=== PATIENT | male | born 1995 | race Hispanic/Latino ===

== ENCOUNTER 2018-03-31 18:35 | Emergency (ER) | payer SELFPAY ==
--- OUTSIDE RECORDS SUMMARY | 2018-03-31 18:36 | XMS REPORT | Clinical Summary ---
:1995 Author Organization [facility] Address [address] [place] [address] Care Team Providers Name Role Phone Asked, No Pcp Primary Care Provider Unavailable Allergies Active Allergy Reactions Severity Noted Date Comments Aspirin Swelling High 07/23/2016 Current Medications Not on file Active Problems Not on file Social History Tobacco Use Types Packs/Day Years Used Date Never Assessed Sex Assigned at Date Recorded Not on file Last Filed Vital Signs Not on file Plan of Treatment Health Maintenance Due Date Last Done Comments INFLUENZA VACCINE 01/15/2018 Results Not on fileafter 03/30/2017 Insurance Payer Benefit Plan / Group Subscriber ID Type Phone Address [facility] xxxxxxxxx HMO PLAN JJ
--- NOTE | 2018-03-31 19:07 | ER ---
Nurse's Notes [facility] Name: Deven Escalona Age: 22 yrs Sex: Male : 1995 Arrival Date: 03/31/2018 Time: 18:37 Bed 30 Private MD: Diagnosis: Acute bronchitis Presentation: 03/31 18:38 Presenting complaint: Friend states: cough x 1 month. Transition of care: patient was sv not received from another setting of care. Onset of symptoms was February 2018. Care prior to arrival: None. 18:38 Method Of Arrival: Ambulatory sv 18:38 Acuity: CORDELL 4 sv 18:58 Risk Assessment: Do you want to hurt yourself or someone else? Patient reports no kr2 desire to harm self or others. Initial Sepsis Screen: Does the patient meet any 2 criteria? No. Patient's initial sepsis screen is negative. Does the patient have a suspected source of infection? No. Patient's initial sepsis screen is negative. Triage Assessment: 18:38 General: Appears in no apparent distress. Behavior is calm, cooperative, appropriate sv for age. Neuro: Level of Consciousness is awake, alert, obeys commands, Oriented to person, place, time, situation, Moves all extremities. Full function Gait is steady. Respiratory: Reports cough that is persistent Respiratory effort is even, unlabored, Respiratory pattern is regular, symmetrical. Historical: - Allergies: 18:40 Aspirin; sv 18:40 Ibuprofen; sv - Home Meds: 19:05 Clonazepam take daily gets from [place] doesnt have rx Oral [Active]; gs - PMHx: 18:40 Anxiety; Depression; sv - Immunization history:: Flu vaccine is not up to date. - Social history:: Smoking status: Patient uses tobacco products, smokes one-half pack cigarettes per day. - Ebola Screening: : No symptoms or risks identified at this time. Screenin:57 Abuse screen: Denies threats or abuse. Denies injuries from another. Nutritional kr2 screening: No deficits noted. Tuberculosis screening: No symptoms or risk factors identified. Fall Risk None identified. Assessment: 18:55 General: Appears in no apparent distress. comfortable, well groomed, well developed, kr2 well nourished, Behavior is calm, cooperative, appropriate for age. Pain: Complains of pain in chest Pain does not radiate. Pain currently is 8 out of 10 on a pain scale. Quality of pain is described as sharp, stabbing, tender, Is intermittent, Alleviated by rest, Aggravated by Cough, deep breathing. Neuro: Level of Consciousness is awake, alert, obeys commands, Oriented to person, place, time, situation, Appropriate for age. Cardiovascular: Capillary refill < 3 seconds in bilateral fingers Patient's skin is warm and dry. Rhythm is sinus rhythm. Respiratory: Reports cough that is productive, persistent since 1 month ago, worsened since Saturday pain with cough since Saturday Airway is patent Respiratory effort is even, unlabored, Respiratory pattern is regular, symmetrical, Breath sounds are clear bilaterally. GI: Abdomen is flat, non-distended, Bowel sounds present X 4 quads. Abd is soft and non tender X 4 quads. EENT: Nares are clear bilaterally Oral mucosa is moist. Throat is pink Reports nasal congestion. Derm: Skin is intact, is healthy with good turgor, Skin is pink, warm \T\ dry. Musculoskeletal: Circulation, motion, and sensation intact. Vital Signs: 18:40 BP 145 / 80; Pulse 104; Resp 20; Temp 98.6; Pulse Ox 98% ; Height 5 ft. 7 in. (170.18 sv cm); ED Course: 18:37 Patient arrived in ED. as 18:39 Triage completed. sv 18:40 Arm band placed on. sv 18:41 Yolande Weiner, SERA is Primary Nurse. kr2 18:50 Baldo Sharma MD is Attending Physician. gs 18:58 Patient has correct armband on for positive identification. Bed in low position. Call kr2 light in reach. Side rails up X 1. Pulse ox on. NIBP on. cafeteria monitor on. Door closed. Warm blanket given. Head of bed elevated. 19:07 yMles Brennan DO is Referral Physician. gs 19:15 No provider procedures requiring assistance completed. Patient did not have IV access kr2 during this emergency room visit. Administered Medications: No medications were administered Outcome: 19:07 Discharge ordered by . gs 19:15 Discharged to home ambulatory, with family. kr2 19:15 Condition: good 19:15 Discharge instructions given to patient, family, Instructed on discharge instructions, follow up and referral plans. medication usage, Demonstrated understanding of instructions, follow-up care, medications, Prescriptions given X 2. 19:18 Patient left the ED. kr2 Signatures: Alida Avalos RN RN sv Martinez, Amelia as Baldo Sharma MD MD gs Reaves, Karey, RN RN kr2
--- NOTE | 2018-03-31 19:07 | EDPHYS ---
Physician Documentation [facility] Name: Deven Escalona Age: 22 yrs Sex: Male : 1995 Arrival Date: 03/31/2018 Time: 18:37 Bed 30 Private MD: ED Physician Baldo Sharma HPI: 03/31 19:02 This 22 yrs old Male presents to ER via Ambulatory with complaints of Cough. gs 19:02 The patient or guardian reports cough, that is intermittent. Onset: The gs symptoms/episode began/occurred 4 week(s) ago. Severity of symptoms: At their worst the symptoms were moderate, in the emergency department the symptoms are unchanged. Modifying factors: the symptoms are aggravated by smoke. Associated signs and symptoms: Pertinent negatives: chest pain, fever, sore throat. The patient has experienced similar episodes in the past, a few times. Historical: - Allergies: 18:40 Aspirin; sv 18:40 Ibuprofen; sv - Home Meds: 19:05 Clonazepam take daily gets from [place] doesnt have rx Oral [Active]; gs - PMHx: 18:40 Anxiety; Depression; sv - Immunization history:: Flu vaccine is not up to date. - Social history:: Smoking status: Patient uses tobacco products, smokes one-half pack cigarettes per day. - Ebola Screening: : No symptoms or risks identified at this time. ROS: 19:05 All other systems are negative. gs Exam: 19:05 Head/Face: Normocephalic, atraumatic. Eyes: Pupils equal round and reactive to light, gs extra-ocular motions intact. Lids and lashes normal. Conjunctiva and sclera are non-icteric and not injected. Cornea within normal limits. Periorbital areas with no swelling, redness, or edema. ENT: Nares patent. No nasal discharge, no septal abnormalities noted. Tympanic membranes are normal and external auditory canals are clear. Oropharynx with no redness, swelling, or masses, exudates, or evidence of obstruction, uvula midline. Mucous membranes moist. Neck: Trachea midline, no thyromegaly or masses palpated, and no cervical lymphadenopathy. Supple, full range of motion without nuchal rigidity, or vertebral point tenderness. No Meningismus. Chest/axilla: Normal chest wall appearance and motion. Nontender with no deformity. No lesions are appreciated. Respiratory: Lungs have equal breath sounds bilaterally, clear to auscultation and percussion. No rales, rhonchi or wheezes noted. No increased work of breathing, no retractions or nasal flaring. Abdomen/GI: Soft, non-tender, with normal bowel sounds. No distension or tympany. No guarding or rebound. No evidence of tenderness throughout. Back: No spinal tenderness. No costovertebral tenderness. Full range of motion. Skin: Warm, dry with normal turgor. Normal color with no rashes, no lesions, and no evidence of cellulitis. MS/ Extremity: Pulses equal, no cyanosis. Neurovascular intact. Full, normal range of motion. Neuro: Awake and alert, GCS 15, oriented to person, place, time, and situation. Cranial nerves II-XII grossly intact. Motor strength 5/5 in all extremities. Sensory grossly intact. Cerebellar exam normal. Normal gait. 19:05 Constitutional: The patient appears alert, awake. 19:05 Cardiovascular: Rate: tachycardic, Rhythm: regular. Vital Signs: 18:40 BP 145 / 80; Pulse 104; Resp 20; Temp 98.6; Pulse Ox 98% ; Height 5 ft. 7 in. (170.18 sv cm); MDM: 19:01 Patient medically screened. gs 19:05 Differential Diagnosis: Bronchitis Upper Respiratory Infection Viral Syndrome. Data gs reviewed: vital signs, nurses notes. Counseling: I had a detailed discussion with the patient and/or guardian regarding: the historical points, exam findings, and any diagnostic results supporting the discharge/admit diagnosis, the presence of at least one elevated blood pressure reading (>120/80) during this emergency department visit, the need for outpatient follow up. Special discussion: I have referred the patient to see his PCP for further evaluation of high blood pressure. 19:07 Counseling: I had a detailed discussion with the patient and/or guardian regarding: gs smoking cessation. Administered Medications: No medications were administered Disposition: 03/31/18 19:07 Discharged to Home. Impression: Acute bronchitis. - Condition is Stable. - Discharge Instructions: Acute Bronchitis, Adult. - Prescriptions for Prednisone 20 mg Oral Tablet - take 1 tablet by ORAL route once daily for 5 days; 5 tablet. Albuterol Sulfate 90 mcg/actuation - inhale 1-2 puff by INHALATION route every 4-6 hours; 1 Inhaler. - Medication Reconciliation Form, Thank You Letter, Antibiotic Education, Prescription Opioid Use form. - Follow up: Mika, DO Myles; When: 2 - 3 days; Reason: Re-evaluation by your physician. Signatures: Alida Avalos RN RN Baldo Sharma MD MD Yolande Weiner RN RN kr2 Corrections: (The following items were deleted from the chart) 19:18 19:07 03/31/2018 19:07 Discharged to Home. Impression: Acute bronchitis. Condition is kr2 Stable. Forms are Medication Reconciliation Form, Thank You Letter, Antibiotic Education, Prescription Opioid Use. Follow up: Myles Brennan; When: 2 - 3 days; Reason: Re-evaluation by your physician. gs
== END 2018-03-31 19:18 | disposition home or self-care (01) ==
LOC: ER 18:35
DX: J20.9 Acute bronchitis, unspecified (principal); F17.210 Nicotine dependence, cigarettes, uncomplicated; F41.9 Anxiety disorder, unspecified; F32.9 Major depressive disorder, single episode, unspecified; Z88.6 Allergy status to analgesic agent
CPT/HCPCS: 99284

== ENCOUNTER 2019-06-30 07:07 | Emergency (ER) | payer SELFPAY ==
--- OUTSIDE RECORDS SUMMARY | 2019-06-30 07:08 | XMS REPORT ---
:1995 [facility] Address [address] [place] [address] [place] [address] Care Team Providers Name Role Phone Unavailable Unavailable Unavailable Problems This patient has no known problems. Allergies, Adverse Reactions, Alerts This patient has no known allergies or adverse reactions. Medications This patient has no known medications.
[2019-06-30 08:40] LABS: Urine Blood NEGATIVE (NEG); Urine Glucose NEGATIVE (NEG); Urine Protein NEGATIVE (NEG); Urine Specific Gravity >1.030 (1.005-1.030); Urine pH 5.5 (5.0-7.0)
--- NOTE | 2019-06-30 08:47 | EDPHYS ---
Physician Documentation [facility] Name: Deven Escalona Age: 23 yrs Sex: Male : 1995 Arrival Date: 06/30/2019 Time: 07:09 Bed 14 Private MD: Derrell Bustillos HPI: 06/30 08:38 This 23 yrs old Male presents to ER via Ambulatory with complaints of Back dana Pain. 08:38 The patient presents with pain that is acute. The symptoms are located in the lumbar dana area, left mid back and right mid back. Onset: The symptoms/episode began/occurred 1 day(s) ago. The pain does not radiate. Associated signs and symptoms: The patient has no apparent associated signs or symptoms. Severity of symptoms: At their worst the symptoms were. Historical: - Allergies: 07:19 Ibuprofen; iw 07:19 Aspirin; iw - Home Meds: 07:19 Clonazepam take daily gets from [place] doesnt have rx Oral [Active]; iw - PMHx: 07:19 Anxiety; Depression; iw - PSHx: 07:19 None; iw - Immunization history:: Adult Immunizations not up to date. - Social history:: Smoking status: Patient uses tobacco products, denies chronic smoking, but will smoke occasionally. - Ebola Screening: : Patient negative for fever greater than or equal to 101.5 degrees Fahrenheit, and additional compatible Ebola Virus Disease symptoms Patient denies exposure to infectious person Patient denies travel to an Ebola-affected area in the 21 days before illness onset No symptoms or risks identified at this time. - Family history:: not pertinent. ROS: 08:38 Constitutional: Negative for fever, chills, and weight loss, Eyes: Negative for injury, dana pain, redness, and discharge, ENT: Negative for injury, pain, and discharge, Neck: Negative for injury, pain, and swelling, Cardiovascular: Negative for chest pain, palpitations, and edema, Respiratory: Negative for shortness of breath, cough, wheezing, and pleuritic chest pain, Abdomen/GI: Negative for abdominal pain, nausea, vomiting, diarrhea, and constipation, : Negative for injury, bleeding, discharge, and swelling, MS/Extremity: Negative for injury and deformity, Skin: Negative for injury, rash, and discoloration, Neuro: Negative for headache, weakness, numbness, tingling, and seizure, Psych: Negative for depression, anxiety, suicide ideation, homicidal ideation, and hallucinations, Allergy/Immunology: Negative for hives, rash, and allergies, Endocrine: Negative for neck swelling, polydipsia, polyuria, polyphagia, and marked weight changes, Hematologic/Lymphatic: Negative for swollen nodes, abnormal bleeding, and unusual bruising. 08:38 Back: Positive for decreased range of motion, pain at rest, pain with movement, of the lumbar area, left mid back and right mid back. Exam: 08:38 Constitutional: This is a well developed, well nourished patient who is awake, alert, dana and in no acute distress. Head/Face: Normocephalic, atraumatic. Eyes: Pupils equal round and reactive to light, extra-ocular motions intact. Lids and lashes normal. Conjunctiva and sclera are non-icteric and not injected. Cornea within normal limits. Periorbital areas with no swelling, redness, or edema. ENT: Nares patent. No nasal discharge, no septal abnormalities noted. Tympanic membranes are normal and external auditory canals are clear. Oropharynx with no redness, swelling, or masses, exudates, or evidence of obstruction, uvula midline. Mucous membranes moist. Neck: Trachea midline, no thyromegaly or masses palpated, and no cervical lymphadenopathy. Supple, full range of motion without nuchal rigidity, or vertebral point tenderness. No Meningismus. Chest/axilla: Normal chest wall appearance and motion. Nontender with no deformity. No lesions are appreciated. Cardiovascular: Regular rate and rhythm with a normal S1 and S2. No gallops, murmurs, or rubs. Normal PMI, no JVD. No pulse deficits. Respiratory: Lungs have equal breath sounds bilaterally, clear to auscultation and percussion. No rales, rhonchi or wheezes noted. No increased work of breathing, no retractions or nasal flaring. Abdomen/GI: Soft, non-tender, with normal bowel sounds. No distension or tympany. No guarding or rebound. No evidence of tenderness throughout. Male : Normal genitalia with no discharge or lesions. Skin: Warm, dry with normal turgor. Normal color with no rashes, no lesions, and no evidence of cellulitis. MS/ Extremity: Pulses equal, no cyanosis. Neurovascular intact. Full, normal range of motion. Neuro: Awake and alert, GCS 15, oriented to person, place, time, and situation. Cranial nerves II-XII grossly intact. Motor strength 5/5 in all extremities. Sensory grossly intact. Cerebellar exam normal. Normal gait. Psych: Awake, alert, with orientation to person, place and time. Behavior, mood, and affect are within normal limits. 08:38 Back: pain, that is mild, that is moderate, ROM is painful, normal spinal alignment noted, CVA tenderness, is absent, muscle spasm, is appreciated in the left low back, left mid back, right mid back and right low back. Vital Signs: 07:19 BP 154 / 110; Pulse 97; Resp 16; Temp 97.8; Pulse Ox 98% on R/A; Weight 108.86 kg; iw Height 5 ft. 7 in. (170.18 cm); Pain 7/10; 08:38 BP 137 / 81; Pulse 89; Resp 17; Temp 97.6(O); Pulse Ox 97% on R/A; mh5 09:41 BP 114 / 71; Pulse 79; Resp 16; Temp 98; Pulse Ox 99% ; iw 07:19 Body Mass Index 37.59 (108.86 kg, 170.18 cm) MDM: 07:25 Patient medically screened. [facility] 08:42 Data reviewed: vital signs, nurses notes, lab test result(s), radiologic studies, plain dana films. 06/30 08:22 Order name: Urine Dipstick--Ancillary (enter results) 06/30 07:28 Order name: Lumbar Spine (3 Views) XRAY [facility] 06/30 07:28 Order name: Spine Thoracic Ap/Lat XRAY [facility] 06/30 07:28 Order name: Urine Dipstick-Ancillary (obtain specimen); Complete Time: 08:21 [facility] Administered Medications: 09:00 Drug: Tylenol 1000 mg Route: PO; bp 09:42 Follow up: Response: Pain is decreased iw Disposition: 06/30/19 08:47 Discharged to Home. Impression: Low back pain, Strain of muscle and tendon of back wall of thorax. - Condition is Stable. - Discharge Instructions: Back Pain, Adult, Musculoskeletal Pain, Thoracic Strain, Back Injury Prevention, [id number], Back Pain, Adult, [id number]. - Prescriptions for Skelaxin 800 mg Oral Tablet - take 1 tablet by ORAL route every 6 hours As needed; 28 tablet. Tylenol- Codeine #3 300-30 mg Oral Tablet - take 2 tablets by ORAL route every 6 hours As needed; 26 tablet. - Work release form, Medication Reconciliation Form, Thank You Letter, Antibiotic Education, Prescription Opioid Use form. - Follow up: Private Physician; When: 2 - 3 days; Reason: Recheck today's complaints, Continuance of care, Re-evaluation by your physician. - Problem is new. - Symptoms have improved. Signatures: Dispatcher [employer] EDOH Derrell Chapman MD MD cha Williams, Irene, RN RN iw Jarett Herrera RN RN bp Corrections: (The following items were deleted from the chart) 09:42 08:47 06/30/2019 08:47 Discharged to Home. Impression: Low back pain; Strain of muscle iw and tendon of back wall of thorax. Condition is Stable. Forms are Medication Reconciliation Form, Thank You Letter, Antibiotic Education, Prescription Opioid Use. Follow up: Private Physician; When: 2 - 3 days; Reason: Recheck today's complaints, Continuance of care, Re-evaluation by your physician. Problem is new. Symptoms have improved. dana
--- NOTE | 2019-06-30 08:47 | ER ---
Nurse's Notes [facility] Name: Deven Escalona Age: 23 yrs Sex: Male : 1995 Arrival Date: 06/30/2019 Time: 07:09 Bed 14 Private MD: Diagnosis: Low back pain;Strain of muscle and tendon of back wall of thorax Presentation: 06/30 07:17 Presenting complaint: Patient states: last night at work, slipped and fell onto back, iw now has pain to mid back area. Transition of care: patient was not received from another setting of care. Onset of symptoms was June 29, 2019. Risk Assessment: Do you want to hurt yourself or someone else? Patient reports no desire to harm self or others. Initial Sepsis Screen: Does the patient meet any 2 criteria? No. Patient's initial sepsis screen is negative. Does the patient have a suspected source of infection? No. Patient's initial sepsis screen is negative. Care prior to arrival: None. 07:17 Method Of Arrival: Ambulatory iw 07:17 Acuity: CORDELL 4 iw Triage Assessment: 07:20 General: Appears in no apparent distress. comfortable, Behavior is cooperative, bp appropriate for age, anxious. Pain: Complains of pain in back. EENT: No deficits noted. Neuro: No deficits noted. Cardiovascular: No deficits noted. Respiratory: No deficits noted. GI: No signs and/or symptoms were reported involving the gastrointestinal system. : No signs and/or symptoms were reported regarding the genitourinary system. Derm: No deficits noted. Musculoskeletal: Circulation, motion, and sensation intact. Range of motion: intact in all extremities. Historical: - Allergies: 07:19 Ibuprofen; iw 07:19 Aspirin; iw - Home Meds: 07:19 Clonazepam take daily gets from [place] doesnt have rx Oral [Active]; iw - PMHx: 07:19 Anxiety; Depression; iw - PSHx: 07:19 None; iw - Immunization history:: Adult Immunizations not up to date. - Social history:: Smoking status: Patient uses tobacco products, denies chronic smoking, but will smoke occasionally. - Ebola Screening: : Patient negative for fever greater than or equal to 101.5 degrees Fahrenheit, and additional compatible Ebola Virus Disease symptoms Patient denies exposure to infectious person Patient denies travel to an Ebola-affected area in the 21 days before illness onset No symptoms or risks identified at this time. - Family history:: not pertinent. Screenin:30 Abuse screen: Denies threats or abuse. Denies injuries from another. Nutritional bp screening: No deficits noted. Tuberculosis screening: No symptoms or risk factors identified. Fall Risk None identified. Assessment: 07:30 General: SEE TRIAGE NOTE. Neuro: Level of Consciousness is awake, alert, obeys bp commands, Oriented to person, place, time, situation, Appropriate for age Gait is steady. 08:13 Reassessment: PT RETURNED FROM RADIOLOGY. bp 09:40 Reassessment: PT D/C HOME AMBULATORY, DX WITH MUSCULAR STRAIN. iw Vital Signs: 07:19 BP 154 / 110; Pulse 97; Resp 16; Temp 97.8; Pulse Ox 98% on R/A; Weight 108.86 kg; iw Height 5 ft. 7 in. (170.18 cm); Pain 7/10; 08:38 BP 137 / 81; Pulse 89; Resp 17; Temp 97.6(O); Pulse Ox 97% on R/A; mh5 09:41 BP 114 / 71; Pulse 79; Resp 16; Temp 98; Pulse Ox 99% ; iw 07:19 Body Mass Index 37.59 (108.86 kg, 170.18 cm) iw ED Course: 07:09 Patient arrived in ED. rg4 07:19 Triage completed. iw 07:19 Arm band placed on. iw 07:25 Derrell Chapman MD is Attending Physician. dana 07:28 Jarett Herrera, RN is Primary Nurse. bp 07:30 Patient has correct armband on for positive identification. Bed in low position. Call bp light in reach. Side rails up X2. 08:00 Lumbar Spine (3 Views) XRAY In Process Unspecified. EDMS 08:00 Spine Thoracic Ap/Lat XRAY In Process Unspecified. EDMS 09:41 No provider procedures requiring assistance completed. Patient did not have IV access iw during this emergency room visit. Administered Medications: 09:00 Drug: Tylenol 1000 mg Route: PO; bp 09:42 Follow up: Response: Pain is decreased iw Outcome: 08:47 Discharge ordered by . dana 09:41 Discharged to home ambulatory. iw 09:41 Condition: stable 09:41 Discharge instructions given to patient, Instructed on discharge instructions, follow up and referral plans. medication usage, Demonstrated understanding of instructions, follow-up care, medications, Prescriptions given X 2. 09:42 Patient left the ED. iw Signatures: Dispatcher [employer] Derrell Zhao MD MD cha Williams, Irene, RN RN Monika Cohen4 Courtney Aguilar Jarett Oliver, RN RN bp
--- NOTE | 2019-06-30 08:57 | RAD REPORT ---
EXAM DESCRIPTION: RAD - Thoracic Spine Ap/Lat - 06/30/2019 8:10 am CLINICAL HISTORY: Fall, back pain COMPARISON: None. FINDINGS: AP & lateral views of the thoracic spine were obtained. Thoracic bodies are normal in heig ht and alignment. There are no acute or destructive bony processes seen. No paraspinal masses are hola ntified. No disc space narrowing. IMPRESSION: Negative thoracic spine examination.
--- NOTE | 2019-06-30 08:59 | RAD REPORT ---
EXAM DESCRIPTION: RAD - Lumbar Spine 3 Views - 06/30/2019 8:10 am CLINICAL HISTORY: Fall, back pain COMPARISON: None. FINDINGS: A three-view lumbar spine examination was performed. Lumbar bodies are normal in height. Alignment is normal except for very slight anterior subluxation o f L5. This is secondary to L5 pars interarticularis defects. Subluxation is less than grade 1 in toni rity. Patient has incomplete bony union of the posterior elements of L5 as a normal variant. No fract ure or acute bony process seen. No disc space narrowing. IMPRESSION: No fracture or acute lumbar spine finding seen. 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
[2019-06-30] MEDS ORDERED: ACETAMINOPHEN 500 MG TAB ONE (09:08)
[2019-06-30 09:54] VITALS: BP 114/71; TEMP 98; O2SAT 99
== END 2019-06-30 09:42 | disposition home or self-care (01) ==
LOC: ER 07:07
DX: S29.012A Strain of muscle and tendon of back wall of thorax, initial encounter (principal); F41.9 Anxiety disorder, unspecified; F32.9 Major depressive disorder, single episode, unspecified; Z72.0 Tobacco use; Z88.6 Allergy status to analgesic agent
CPT/HCPCS: 72070; 72100; 81003; 99283

== ENCOUNTER 2023-10-10 15:54 | Emergency (ER) | payer OTHER, SELFPAY ==
--- NOTE | 2023-10-10 17:34 | EDPHYS ---
Physician Documentation [facility] Name: Deven Escalona Age: 28 yrs Sex: Male : 1995 Arrival Date: 10/10/2023 Time: 15:54 Bed 11 Private MD: ED Physician Saud Prince HPI: 10/09 17:20 This 28 yrs old Male presents to ER via Ambulatory with complaints of Back sp3 Pain. 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 No actual fall or significant trauma noted. Pain is in his muscle on the right side of his mid back. Worse with movement. He denies any headache, fever, URI symptoms, chest pain, shortness of breath, low back pain, and ability to ambulate, neurological complaints or any other signs or symptoms on ROS at this time.. Historical: - Allergies: 16:26 Aspirin; ss 16:26 Ibuprofen; ss - Home Meds: 16:26 Clonazepam take daily gets from [place] doesnt have rx Oral [Active]; ss - PMHx: 16:26 Anxiety; Depression; ss - PSHx: 16:26 None; ss - Immunization history:: Client reports having NOT received the Covid vaccine. - Infectious Disease History:: Denies. - Social history:: Smoking status: Patient reports the use of cigarette tobacco products, denies chronic smoking, but will smoke occasionally. ROS: 17:22 Constitutional: Negative for fever, chills, and weight loss, Eyes: Negative for injury, sp3 pain, redness, and discharge, ENT: Negative for injury, pain, and discharge, Neck: Negative for injury, pain, and swelling, Cardiovascular: Negative for chest pain, palpitations, and edema, Respiratory: Negative for shortness of breath, cough, wheezing, and pleuritic chest pain, Abdomen/GI: Negative for abdominal pain, nausea, vomiting, diarrhea, and constipation, MS/Extremity: Negative for injury and deformity, Skin: Negative for injury, rash, and discoloration, Psych: Negative for depression, anxiety, suicide ideation, homicidal ideation, and hallucinations, Allergy/Immunology: Negative for hives, rash, and allergies, Endocrine: Negative for neck swelling, polydipsia, polyuria, polyphagia, and marked weight changes, Hematologic/Lymphatic: Negative for swollen nodes, abnormal bleeding, and unusual bruising, 17:22 All other systems are negative, Exam: 17:23 Constitutional: This is a well developed, well nourished patient who is awake, alert, sp3 and in no acute distress. Head/Face: Normocephalic, atraumatic. Eyes: Pupils equal round and reactive to light, extra-ocular motions intact. Lids and lashes normal. Conjunctiva and sclera are non-icteric and not injected. Cornea within normal limits. Periorbital areas with no swelling, redness, or edema. ENT: Nares patent. No nasal discharge, no septal abnormalities noted. External auditory canals are clear. Oropharynx with no redness, swelling, or masses, exudates, or evidence of obstruction, uvula midline. Mucous membranes moist. Neck: Trachea midline, no thyromegaly or masses palpated, and no cervical lymphadenopathy. Supple, full range of motion without nuchal rigidity, or vertebral point tenderness. No Meningismus. Chest/axilla: Normal chest wall appearance and motion. Nontender with no deformity. No lesions are appreciated. Cardiovascular: Regular rate and rhythm with a normal S1 and S2. No gallops, murmurs, or rubs. Normal PMI, no JVD. No pulse deficits. Respiratory: Lungs have equal breath sounds bilaterally, clear to auscultation and percussion. No rales, rhonchi or wheezes noted. No increased work of breathing, no retractions or nasal flaring. Abdomen/GI: Soft, non-tender, with normal bowel sounds. No distension or tympany. No guarding or rebound. No evidence of tenderness throughout. Skin: Warm, dry with normal turgor. Normal color with no rashes, no lesions, and no evidence of cellulitis. Neuro: Awake and alert, GCS 15, oriented to person, place, time, and situation. Cranial nerves II-XII grossly intact. Motor strength 5/5 in all extremities. Sensory grossly intact. Cerebellar exam normal. Normal gait. Psych: Awake, alert, with orientation to person, place and time. Behavior, mood, and affect are within normal limits. 17:23 Back: Point tenderness in the musculature on the right side just lateral to the mid spine, reproducible. No bony tenderness anywhere., Vital Signs: 16:25 BP 147 / 99; Pulse 99; Resp 15; Temp 97.6(TE); Pulse Ox 100% on R/A; Weight 88.45 kg; ss Height 5 ft. 8 in. ; Pain 8/10; 17:57 BP 149 / 84; Pulse 80; Resp 17; Pulse Ox 99% ; nj1 16:25 Body Mass Index 29.65 (88.45 kg, 172.72 cm) ss 16:25 Pain Scale: Adult ss MDM: 17:05 Patient medically screened. sp3 17:24 Data reviewed: vital signs, nurses notes. ED course: 38-year-old male with muscle sp3 strain. Clinically have ruled out fracture, intrathoracic or intra-abdominal pathology, or any other critical process. Patient cannot have NSAIDs due to allergic reaction. He is also driving so cannot give any p.o. narcotics in the ED. We will safely discharge him home with prescriptions for tramadol, Flexeril and a work note for tomorrow.. Administered Medications: 17:32 Not Given (Cancelled): [id number] mg IM once sp3 Disposition Summary: 10/10/23 17:33 Discharge Ordered Notes: Location: Home sp3 Condition: Stable sp3 Diagnosis - Thoracic muscle strain sp3 Followup: sp3 - With: Private Physician - When: Upon discharge from the Emergency Department - Reason: Continuance of care Discharge Instructions: - Discharge Summary Sheet sp3 - Muscle Strain sp3 Forms: - Medication Reconciliation Form sp3 - Antibiotic Education sp3 - Prescription Opioid Use sp3 - Patient Portal Instructions sp3 - Leadership Thank You Letter sp3 - Work release form nj1 Prescriptions: - Tramadol 50 mg Oral Tablet - take 1 tablet ORAL route every 8 hours as needed; 12 tablet; Refills: 0, sp3 Product Selection Permitted - Cyclobenzaprine 5 mg Oral Tablet - take 1 tablet ORAL route 3 times per day As needed; 15 tablet; Refills: 0, sp3 Product Selection Permitted Signatures: Dispatcher [employer] Martina Chavez RN RN Saud Blackwood MD MD sp3 Corrections: (The following items were deleted from the chart) 17:30 17:07 Lumbar Spine 3 Views+RAD.RAD.BRZ ordered. EDMS EDMS 17:30 17:07 Spine Single View Thoracic+RAD.RAD.BRZ ordered. EDMS EDMS 17:33 17:24 ED course: 38-year-old male with muscle strain. Clinically have ruled out sp3 fracture, intrathoracic or intra-abdominal pathology, or any other critical process. We will administer ketorolac IM and give a work note for tomorrow and discharge patient home on diclofenac and Flexeril p.o.. sp3
--- NOTE | 2023-10-10 17:34 | ER ---
Nurse's Notes [facility] Name: Deven Escalona Age: 28 yrs Sex: Male : 1995 Arrival Date: 10/10/2023 Time: 15:54 Bed 11 Private MD: Diagnosis: Thoracic muscle strain Presentation: 10/09 16:25 Chief complaint: Patient states: mid back pain that began 4 days ago. No known injury. 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 Coronavirus screen: Client denies travel out of the [place] in the last 14 days. Ebola Screen: Patient denies exposure to infectious person. Patient denies travel to an Ebola-affected area in the 21 days before illness onset. Initial Sepsis Screen: Does the patient meet any 2 criteria? No. Patient's initial sepsis screen is negative. Does the patient have a suspected source of infection? No. Patient's initial sepsis screen is negative. Risk Assessment: Do you want to hurt yourself or someone else? Patient reports no desire to harm self or others. Onset of symptoms was October 06, 2023. 16:25 Method Of Arrival: Ambulatory ss 16:25 Acuity: CORDELL 3 Triage Assessment: 16:26 General: Appears in no apparent distress. comfortable, Behavior is calm, cooperative. ss Pain: Complains of pain in lumbar area Pain currently is 8 out of 10 on a pain scale. Pain began 4 days ago Is continuous. Derm: Skin is pink, warm \T\ dry. normal. Historical: - Allergies: 16:26 Aspirin; ss 16:26 Ibuprofen; ss - Home Meds: 16:26 Clonazepam take daily gets from [place] doesnt have rx Oral [Active]; ss - PMHx: 16:26 Anxiety; Depression; ss - PSHx: 16:26 None; ss - Immunization history:: Client reports having NOT received the Covid vaccine. - Infectious Disease History:: Denies. - Social history:: Smoking status: Patient reports the use of cigarette tobacco products, denies chronic smoking, but will smoke occasionally. Screenin:02 [facility] ED Fall Risk Assessment (Adult) History of falling in the last 3 months, nj1 including since admission No falls in past 3 months (0 pts) Confusion or Disorientation No (0 pts) Intoxicated or Sedated No (0 pts) Impaired Gait No (0 pts) Mobility Assist Device Used No (0 pt) Altered Elimination No (0 pt) Score/Fall Risk Level 0 - 2 = Low Risk Oriented to surroundings, Maintained a safe environment, Hourly rounding (assess needs \T\ fall precautionary measures) done. Abuse screen: Denies threats or abuse. Denies injuries from another. Nutritional screening: No deficits noted. Tuberculosis screening: No symptoms or risk factors identified. Assessment: 17:58 General: Appears in no apparent distress. comfortable, Behavior is calm, cooperative, nj1 appropriate for age. Neuro: Level of Consciousness is awake, alert, obeys commands, Oriented to person, place, time, situation. Cardiovascular: Patient's skin is warm and dry. Respiratory: Airway is patent Respiratory effort is even, unlabored. 17:58 Pain: Complains of pain in back Pain currently is 7 out of 10 on a pain scale. nj1 Vital Signs: 16:25 BP 147 / 99; Pulse 99; Resp 15; Temp 97.6(TE); Pulse Ox 100% on R/A; Weight 88.45 kg; ss Height 5 ft. 8 in. ; Pain 8/10; 17:57 BP 149 / 84; Pulse 80; Resp 17; Pulse Ox 99% ; nj1 16:25 Body Mass Index 29.65 (88.45 kg, 172.72 cm) ss 16:25 Pain Scale: Adult ss ED Course: 15:56 Patient arrived in ED. rg4 16:06 Saud Prince MD is Attending Physician. sp3 16:26 Triage completed. ss 16:26 Arm band placed on right wrist. ss 17:16 Patient placed in an exam room, on a stretcher. ll1 17:27 Dhara Huerta, SERA is Primary Nurse. nj1 18:02 No provider procedures requiring assistance completed. Patient did not have IV access nj1 during this emergency room visit. 18:03 Patient has correct armband on for positive identification. Provided Education on: call nj1 light, fall precautions. Administered Medications: 17:32 Not Given (Cancelled): [id number] mg IM once sp3 Medication: 18:03 VIS not applicable for this client. nj1 Outcome: 17:33 Discharge ordered by . sp3 18:02 Discharged to home ambulatory, with family, nj1 18:02 Condition: stable 18:02 Discharge instructions given to patient, Instructed on discharge instructions, follow up and referral plans. medication usage, Demonstrated understanding of instructions, follow-up care, medications, Prescriptions given X 2, 18:03 Patient left the ED. nj1 Signatures: Martina Heck, RN RN Monika Licea rg4 Daniel Thakkar RN RN ll1 Saud Prince MD MD sp3 Dhara Huerta RN RN nj1
[2023-10-10 19:01] VITALS: BP 149/84; TEMP 97.6; O2SAT 99
== END 2023-10-10 18:03 | disposition home or self-care (01) ==
LOC: ER 15:54
DX: S29.012A Strain of muscle and tendon of back wall of thorax, initial encounter (principal); F17.210 Nicotine dependence, cigarettes, uncomplicated; Z88.6 Allergy status to analgesic agent

== ENCOUNTER 2024-08-11 11:56 | Emergency (ER) | payer OTHER ==
--- NOTE | 2024-08-11 12:20 | EDPHYS ---
Physician Documentation [facility] Name: Deven Escalona Age: 28 yrs Sex: Male : 1995 Arrival Date: 08/11/2024 Time: 11:56 Bed [id number] Private MD: ED Physician Jong Spencer HPI: 08/11 13:13 This 28 yrs old Male presents to ER via Ambulatory with complaints of Sore rt Throat, Ear Pain. 13:13 Patient presents to the ED with about 1 week of a sore throat. States that since rt yesterday, he developed a right ear pain without drainage. Reports nasal congestion, denies other acute complaints at this time, symptoms are mild in severity, aching nature, nonradiating, no other aggravating or alleviating factors.. Historical: - Allergies: 12:13 Aspirin; iw 12:13 Ibuprofen; iw - PMHx: 12:13 Anxiety; Depression; iw - Immunization history:: Adult Immunizations up to date. - Infectious Disease History:: Denies. - Social history:: Smoking status: Patient reports the use of cigarette tobacco products. - Family history:: not pertinent. ROS: 13:13 Constitutional: Negative for fever, chills, and weight loss, Cardiovascular: Negative rt for chest pain, palpitations, and edema, Respiratory: Negative for shortness of breath, cough, wheezing, and pleuritic chest pain, Abdomen/GI: Negative for abdominal pain, nausea, vomiting, diarrhea, and constipation, MS/Extremity: Negative for injury and deformity, Skin: Negative for injury, rash, and discoloration, 13:13 ENT: Positive for ear pain, sore throat, Exam: 13:13 Constitutional: This is a well developed, well nourished patient who is awake, alert, rt and in no acute distress. Head/Face: Normocephalic, atraumatic. Chest/axilla: Normal chest wall appearance and motion. Nontender with no deformity. No lesions are appreciated. Cardiovascular: Regular rate and rhythm with a normal S1 and S2. No gallops, murmurs, or rubs. Normal PMI, no JVD. No pulse deficits. Respiratory: Lungs have equal breath sounds bilaterally, clear to auscultation and percussion. No rales, rhonchi or wheezes noted. No increased work of breathing, no retractions or nasal flaring. Abdomen/GI: Soft, non-tender, with normal bowel sounds. No distension or tympany. No guarding or rebound. No evidence of tenderness throughout. Skin: Warm, dry with normal turgor. Normal color with no rashes, no lesions, and no evidence of cellulitis. MS/ Extremity: Pulses equal, no cyanosis. Neurovascular intact. Full, normal range of motion. 13:13 ENT: Right TM is bulging, erythematous, left TM is clear, mild posterior pharyngeal erythema with 1+ tonsils, symmetrical, uvula is midline. Vital Signs: 12:11 BP 101 / 80; Pulse 84; Resp 16; Temp 98.4; Pulse Ox 100% on R/A; Weight 94.8 kg; Height iw 5 ft. 8 in. ; Pain 7/10; 12:11 Body Mass Index 31.78 (94.80 kg, 172.72 cm) iw 12:11 Pain Scale: Adult iw MDM: 12:13 Medical Screening Exam initiated rt 13:16 Differential diagnosis: Viral syndrome, upper respiratory faction, otitis media, otitis rt externa. Data reviewed: vital signs, nurses notes. Test considered but Not performed: CT: No clinical signs to suggest mastoiditis, CT scan of the head is not indicated. Counseling: I had a detailed discussion with the patient and/or guardian regarding the historical points, exam findings, and any diagnostic results supporting the discharge/admit diagnosis, the need for outpatient follow up. Response to treatment: There is no appreciated change of the patient's symptoms at this time. Administered Medications: No medications were administered Disposition Summary: 08/11/24 12:19 Discharge Ordered Notes: Location: Home rt Condition: Stable rt Diagnosis - Acute serous otitis media, right ear rt Followup: rt - With: Private Physician - When: 5 - 6 days - Reason: Discharge Instructions: - Discharge Summary Sheet rt - Otitis Media, Adult rt Forms: - Work release form ll1 - Medication Reconciliation Form rt - Antibiotic Education rt - Prescription Opioid Use rt - Patient Portal Instructions rt - Leadership Thank You Letter rt Prescriptions: - Amoxicillin 875 mg Oral Tablet - take 1 tablet ORAL route every 12 hours for 10 days; 20 tablet; Refills: 0, rt Product Selection Permitted Signatures: Evelyn Britt RN RN iw Daniel Thakkar RN RN ll1 Jong Spencer MD MD rt
--- NOTE | 2024-08-11 12:20 | ER ---
Nurse's Notes [facility] Name: Deven Escalona Age: 28 yrs Sex: Male : 1995 Arrival Date: 08/11/2024 Time: 11:56 Bed [id number] Private MD: Diagnosis: Acute serous otitis media, right ear Presentation: 08/11 12:11 Chief complaint: Patient states: sore throat since last week, now has pain and iw tenderness and swelling to right side of face/jaw , also having right ear pain , no fever. Coronavirus screen: Client presents with at least one sign or symptom that may indicate coronavirus-19. Ebola Screen: No symptoms or risks identified at this time. Initial Sepsis Screen: Does the patient meet any 2 criteria? No. Patient's initial sepsis screen is negative. Does the patient have a suspected source of infection? No. Patient's initial sepsis screen is negative. Risk Assessment: Do you want to hurt yourself or someone else? Patient reports no desire to harm self or others. 12:11 Method Of Arrival: Ambulatory iw 12:11 Acuity: CORDELL 4 iw 12:45 Onset of symptoms was August 04, 2024. ll1 Triage Assessment: 12:17 General: Appears in no apparent distress. Behavior is calm, cooperative. Pain: iw Complains of pain in right ear. EENT: Tympanic membrane. Historical: - Allergies: 12:13 Aspirin; iw 12:13 Ibuprofen; iw - PMHx: 12:13 Anxiety; Depression; iw - Immunization history:: Adult Immunizations up to date. - Infectious Disease History:: Denies. - Social history:: Smoking status: Patient reports the use of cigarette tobacco products. - Family history:: not pertinent. Screenin:29 [facility] ED Fall Risk Assessment (Adult) History of falling in the last 3 months, iw including since admission No falls in past 3 months (0 pts) Confusion or Disorientation No (0 pts) Intoxicated or Sedated No (0 pts) Impaired Gait No (0 pts) Mobility Assist Device Used No (0 pt) Altered Elimination No (0 pt) Score/Fall Risk Level 0 - 2 = Low Risk Oriented to surroundings, Maintained a safe environment. Abuse screen: Denies threats or abuse. Nutritional screening: No deficits noted. Tuberculosis screening: No symptoms or risk factors identified. Assessment: 12:29 General: Appears in no apparent distress. Behavior is calm, cooperative. Neuro: Level iw of Consciousness is awake, alert, obeys commands. Respiratory: Airway is patent Respiratory effort is even, unlabored, Breath sounds are clear bilaterally. Derm: Skin is intact, is healthy with good turgor. 12:44 Reassessment: No changes from previously documented assessment. Patient and/or family ll1 updated on plan of care and expected duration. Pain level reassessed. Patient is alert, oriented x 3, equal unlabored respirations, skin warm/dry/pink. 12:46 EENT: Throat is clear. ll1 Vital Signs: 12:11 BP 101 / 80; Pulse 84; Resp 16; Temp 98.4; Pulse Ox 100% on R/A; Weight 94.8 kg; Height iw 5 ft. 8 in. ; Pain 7/10; 12:11 Body Mass Index 31.78 (94.80 kg, 172.72 cm) iw 12:11 Pain Scale: Adult iw ED Course: 11:57 Patient arrived in ED. im 12:08 Jong Spencer MD is Attending Physician. rt 12:13 Triage completed. iw 12:17 Arm band placed on. iw 12:45 Patient has correct armband on for positive identification. Provided Education on: ll1 finish all prescribed antibiotics. 12:45 No provider procedures requiring assistance completed. Patient did not have IV access ll1 during this emergency room visit. Administered Medications: No medications were administered Medication: 12:29 VIS not applicable for this client. iw Outcome: 12:19 Discharge ordered by MD. rt 12:45 Discharged to home ambulatory, ll1 12:45 Condition: stable 12:45 Discharge instructions given to patient, Instructed on discharge instructions, follow up and referral plans. medication usage, Demonstrated understanding of instructions, follow-up care, medications, Prescriptions given X 1, 12:46 Patient left the ED. ll1 Signatures: Evelyn Britt RN RN iw Daniel Thakkar RN RN ll1 Jong Spencer MD MD rt Stefanie Mirza im
[2024-08-11 12:51] VITALS: BP 101/80; TEMP 98.4; O2SAT 100
== END 2024-08-11 12:46 | disposition home or self-care (01) ==
LOC: ER 11:56
DX: H65.01 Acute serous otitis media, right ear (principal); Z72.0 Tobacco use